=== PATIENT | female | born 2000 | race African-American/Black ===

== ENCOUNTER 2018-07-22 11:23 | Inpatient (IN) ==
[2018-07-22 11:59] LABS: Apearance,Urine CLEAR (Clear); Bilirubin,Urine Negative (Negative); Blood, Urine Small mg/dL (Negative); Glucose,Urine (UA) Negative (Negative); Ketones,Urine Negative (Negative); Mucus,Urine Occasional /LPF (Occasional); Nitrite,Urine Negative (Negative); Protein,Urine Negative; RBC,Urine 1 /HPF (0-4); Squamous Epithelial Cell,Urine Occasional /HPF (0-10); Urine Color Colorless (Yellow); Urine Specific Gravity 1.003 (1.001-1.035); Urine Urobilinogen < 2.0 EU/DL (0.2-1.0); WBC,Urine 1 /HPF (0-6)
[2018-07-22] MEDS ORDERED: BUTORPHANOL 2 MG/ML VIAL IM ONE (13:51)
[2018-07-22] MEDS ORDERED: PROMETHAZINE 25 MG/1 ML VIAL IM ONE (13:51)
[2018-07-22] MEDS ORDERED: PROMETHAZINE INJ 25 MG in SODIUM CHLORIDE 0.9% 50 ML IV ONE (13:51)
[2018-07-22] MEDS ORDERED: BUTORPHANOL 2 MG/ML VIAL ONE (13:53)
[2018-07-22] MEDS ORDERED: PROMETHAZINE 25 MG/1 ML VIAL ONE (13:54)
[2018-07-22] MEDS ORDERED: BUTORPHANOL 2 MG/ML VIAL IV PRN (17:31)
[2018-07-22] MEDS ORDERED: LACTATED RINGERS 1,000 ML IV SCH (18:00)
[2018-07-22] MEDS ORDERED: ONDANSETRON 4 MG/2 ML VIAL IV PRN ×2 (18:03→20:41)
[2018-07-22] MEDS ORDERED: AMPICILLIN INJ 2,000 MG in SODIUM CHLORIDE 0.9% 100 ML IV ONE (18:05)
[2018-07-22] MEDS ORDERED: CITRIC ACID/SODIUM CITRATE 30 ML UDCUP PO ONE (18:08)
[2018-07-22] MEDS ORDERED: NALOXONE 0.4 MG/ML VIAL IV PRN (18:08)
[2018-07-22] MEDS ORDERED: diphenhydrAMINE 50 MG/1 ML VIAL IV PRN ×2 (18:08)
[2018-07-22] MEDS ORDERED: LACTATED RINGERS 1,000 ML IV ONE (18:08)
[2018-07-22] MEDS ORDERED: FAMOTIDINE 20 MG/2 ML VIAL IV ONE (18:08)
[2018-07-22] MEDS ORDERED: ePHEDrine 50 MG/ML AMP IV PRN (18:08)
[2018-07-22 18:30] LABS: Basophils % 0.4 % (0.0-0.8); Eosinophils % 0.2 % (0.00-10.9); Hematocrit 33.2 VOL% (35.7-47.0); Hemoglobin 9.8 GM/DL (12.0-16.0); Immature Granulocytes % 1.2 %; Immature Granulocytes Absolute 0.11 #; Lymphocytes # 1.6 10*3/uL (1.4-4.0); Lymphocytes % 17.3 % (21.3-54.2); Mean Corpuscular HGB Conc 29.5 GM/DL (32-36); Mean Corpuscular Hemoglobin 24 PG (27-34); Mean Corpuscular Volume 80.8 FL (87-102); Mean Platelet Volume 11.2 FL (9.6-12.0); Monocytes # 0.7 10*3/uL (0.11-0.8); Monocytes % 7.5 % (1.7-12.7); Neutrophils # 6.9 10*3/uL (1.4-7.4); Neutrophils % 73.4 % (38.7-73.9); Platelet Count 161 T/CUMM (130-400); Red Blood Count 4.11 MC/CUMM (3.8-5.5); Red Cell Distribution Width 15.1 % (9.3-17.3); White Blood Count 9.4 T/CUMM (4-12)
[2018-07-22] MEDS ORDERED: OXYTOCIN/LR 20 UNIT/1,000 ML BAG IV SCH (18:30)
[2018-07-22] MEDS ORDERED: fentaNYL 2 MCG/ROPIV 0.2% EPID 100 ML EPIDURAL SCH (18:30)
[2018-07-22] MEDS ORDERED: OXYTOCIN/LR 20 UNIT/1,000 ML BAG IV ONE ×2 (19:31→20:41)
[2018-07-22] MEDS ORDERED: miSOPROStol 200 MCG TABLET ONE (19:31)
[2018-07-22] MEDS ORDERED: TRANEXAMIC ACID 1,000 MG/10 ML VIAL ONE (19:31)
[2018-07-22] MEDS ORDERED: CARBOPROST TROMETHAMINE 250 MCG/ML AMP IM ONE (19:32)
[2018-07-22] MEDS ORDERED: METHYLERGONOVINE 0.2 MG/1 ML AMP ONE (19:32)
[2018-07-22] MEDS ORDERED: LANOLIN 50% CREAM 0.3 OZ TUBE TOP PRN (20:41)
[2018-07-22] MEDS ORDERED: BISACODYL 10 MG SUPP RECTAL PRN (20:41)
[2018-07-22] MEDS ORDERED: DIPH/TET/ACEL PERT BOOSTER VACCINE 0.5 ML VIAL IM ONE (20:41)
[2018-07-22] MEDS ORDERED: IBUPROFEN 800 MG TABLET PO PRN (20:41)
[2018-07-22] MEDS ORDERED: WITCH HAZEL PADS 100/JAR TOP PRN (20:41)
[2018-07-22] MEDS ORDERED: BENZOCAINE 20%/MENTHOL 0.5% SPRAY 56 GM CAN TOP PRN (20:41)
[2018-07-22] MEDS ORDERED: ACETAMINOPHEN 325 MG TABLET PO PRN (20:41)
[2018-07-22] MEDS ORDERED: RHO(D) IMMUNE GLOBULIN 300 MCG SYRINGE IM ONE (20:41)
[2018-07-22] MEDS ORDERED: oxyCODONE/ACETAMINOPHEN 5-325 MG TABLET PO PRN ×2 (20:41)
[2018-07-22] MEDS ORDERED: MEASLES/MUMPS/RUBELLA VACCINE 0.5 ML VIAL SUBCUT ONE (20:41)
[2018-07-22] MEDS ORDERED: HYDROCORTISONE 2.5% RECTAL CREAM 30 GM TUBE TOP PRN (20:41)
[2018-07-22] MEDS ORDERED: AMPICILLIN INJ 1,000 MG in SODIUM CHLORIDE 0.9% 100 ML IV SCH (22:30)
[2018-07-22] MEDS: DOCUSATE SODIUM 100 MG CAPSULE PO SCH (23:52)
[2018-07-23 06:07] LABS: Basophils # 0.1 10*3/uL (0.0-0.2); Basophils % 0.4 % (0.0-0.8); Eosinophils % 0.2 % (0.00-10.9); Hematocrit 29.4 VOL% (35.7-47.0); Hemoglobin 9.1 GM/DL (12.0-16.0); Immature Granulocytes % 0.7 %; Immature Granulocytes Absolute 0.09 #; Lymphocytes # 2.5 10*3/uL (1.4-4.0); Lymphocytes % 20.8 % (21.3-54.2); Mean Corpuscular Hemoglobin 24 PG (27-34); Mean Corpuscular Volume 77.8 FL (87-102); Mean Platelet Volume 10.5 FL (9.6-12.0); Monocytes # 1.2 10*3/uL (0.11-0.8); Monocytes % 9.7 % (1.7-12.7); Neutrophils # 8.2 10*3/uL (1.4-7.4); Neutrophils % 68.2 % (38.7-73.9); Platelet Count 160 T/CUMM (130-400); Red Blood Count 3.78 MC/CUMM (3.8-5.5)
[2018-07-23] MEDS: DOCUSATE SODIUM 100 MG CAPSULE PO SCH ×2 (09:00→21:01)
[2018-07-24 08:14] VITALS: BP 120/75
[2018-07-24] MEDS: DOCUSATE SODIUM 100 MG CAPSULE PO SCH (09:49)
== END 2018-07-24 12:30 | disposition home or self-care (01) | DRG 807 ==
LOC: N.LDOUT 11:23 → N.LD 11:30 → N.OB 23:47
PROVIDERS: ADMIT Obstetrics & Gynecology; ATTEND Obstetrics & Gynecology

== ENCOUNTER 2021-02-08 04:18 | Inpatient (IN) ==
[2021-02-08] MEDS ORDERED: ONDANSETRON 4 MG/2 ML VIAL IV PRN ×2 (04:38→12:50)
[2021-02-08] MEDS ORDERED: MEPERIDINE 50 MG/1 ML VIAL IV PRN (04:38)
[2021-02-08] MEDS ORDERED: BUTORPHANOL 2 MG/ML VIAL IV PRN (04:38)
[2021-02-08] MEDS ORDERED: LACTATED RINGERS 500 ML IV PRN (04:38)
[2021-02-08] MEDS ORDERED: MEPERIDINE 50 MG/1 ML VIAL ONE (04:40)
[2021-02-08] MEDS ORDERED: MEPERIDINE 50 MG/1 ML VIAL IV ONE (04:43)
[2021-02-08] MEDS ORDERED: AMPICILLIN INJ 2,000 MG in SODIUM CHLORIDE 0.9% 100 ML IV ONE (04:44)
[2021-02-08] MEDS ORDERED: AMPICILLIN 2,000 MG VIAL ONE (04:45)
[2021-02-08] MEDS ORDERED: SODIUM CHLORIDE 0.9% 0 ML IV ONE (04:46)
[2021-02-08] MEDS ORDERED: LACTATED RINGERS 1,000 ML IV SCH (05:00)
[2021-02-08 05:14] LABS: Basophils % 0.5 % (0.0-0.8); Eosinophils # 0.1 10*3/uL (0.0-0.87); Eosinophils % 0.6 % (0.00-10.9); Hematocrit 31.8 VOL% (35.7-47.0); Hemoglobin 9.4 GM/DL (12.0-16.0); Immature Granulocytes % 0.9 %; Immature Granulocytes Absolute 0.08 #; Lymphocytes # 2.5 10*3/uL (1.4-4.0); Lymphocytes % 28.2 % (21.3-54.2); Mean Corpuscular HGB Conc 29.6 GM/DL (32-36); Mean Corpuscular Volume 73.8 FL (87-102); Mean Platelet Volume 9.9 FL (9.6-12.0); Monocytes % 8.9 % (1.7-12.7); Neutrophils % 60.9 % (38.7-73.9); Platelet Count 233 T/CUMM (130-400); Red Blood Count 4.31 MC/CUMM (3.8-5.5); Red Cell Distribution Width 15.6 % (9.3-17.3); White Blood Count 8.7 T/CUMM (4-12)
[2021-02-08 05:28] LABS: Alanine Aminotransferase 10 U/L (13-56); Albumin 1.2 G/DL (3.4-5.0); Alkaline Phosphatase 176 U/L (45-117); Aspartate Amino Transferase 15 U/L (0-37); Bilirubin,Total < 0.39 MG/DL (0.20-1.00); Blood Urea Nitrogen 3 MG/DL (7-18); Calcium 8.5 MG/DL (8.5-10.1); Carbon Dioxide 22 MMOL/L (21-32); Estimated Glom Filtration Rate 151 ML/MIN; Glucose 98 MG/DL (74-106); Osmolality,Calculated 269.8 MOS/KG (273-304); Potassium 2.7 MMOL/L (3.5-5.1); Sodium 137 MMOL/L (136-145); Total Protein 7.1 G/DL (6.4-8.2)
[2021-02-08 05:45] LABS: Hepatitis B Surface Ag Quant < 0.10 Index; Hepatitis B Surface Ag Result Non-Reactive (NonReactive)
[2021-02-08] MEDS ORDERED: METHYLERGONOVINE 0.2 MG/1 ML AMP ONE (05:51)
[2021-02-08] MEDS ORDERED: miSOPROStoL 200 MCG TABLET ONE (05:51)
[2021-02-08] MEDS ORDERED: TRANEXAMIC ACID 1,000 MG/10 ML VIAL ONE (05:51)
[2021-02-08] MEDS ORDERED: OXYTOCIN/LR 20 UNIT/1,000 ML BAG IV ONE ×3 (05:51→12:50)
[2021-02-08] MEDS ORDERED: CARBOPROST TROMETHAMINE 250 MCG/ML AMP IM ONE (05:52)
[2021-02-08 05:57] LABS: HIV Antigen/Antibody Result Nonreactive (Nonreactive); Rubella Antibody IgG Result Reactive (NonReactive)
[2021-02-08 06:17] LABS: Cord Arterial Blood HCO3 24.6 MMOL/L
[2021-02-08 06:19] LABS: Cord Venous Blood HCO3 21.8 MMOL/L; Cord Venous Blood PCO2 38.5 MMHG; Cord Venous Blood PO2 33.9 MMHG
[2021-02-08 09:32] LABS: Basophils % 0.2 % (0.0-0.8); Eosinophils % 0.1 % (0.00-10.9); Immature Granulocytes % 0.6 %; Immature Granulocytes Absolute 0.08 #; Lymphocytes # 1.4 10*3/uL (1.4-4.0); Lymphocytes % 11.1 % (21.3-54.2); Mean Corpuscular Volume 71.6 FL (87-102); Mean Platelet Volume 9.7 FL (9.6-12.0); Monocytes % 5.3 % (1.7-12.7); Neutrophils % 82.7 % (38.7-73.9); Platelet Count 223 T/CUMM (130-400); Red Blood Count 4.19 MC/CUMM (3.8-5.5); Red Cell Distribution Width 15.9 % (9.3-17.3); White Blood Count 12.4 T/CUMM (4-12)
[2021-02-08 09:48] LABS: Alanine Aminotransferase 10 U/L (13-56); Albumin 2.4 G/DL (3.4-5.0); Alkaline Phosphatase 159 U/L (45-117); Aspartate Amino Transferase 20 U/L (0-37); Bilirubin,Total < 0.39 MG/DL (0.20-1.00); Blood Urea Nitrogen 2 MG/DL (7-18); Calcium 8.7 MG/DL (8.5-10.1); Carbon Dioxide 26 MMOL/L (21-32); Estimated Glom Filtration Rate 151 ML/MIN; Glucose 115 MG/DL (74-106); Potassium 3.4 MMOL/L (3.5-5.1); Sodium 136 MMOL/L (136-145); Total Protein 6.8 G/DL (6.4-8.2)
[2021-02-08] MEDS: POTASSIUM CHLORIDE RIDER 10 MEQ/100 ML PREMIX IV PRN ×4 (10:29→14:25)
[2021-02-08] MEDS ORDERED: SODIUM CHLORIDE 0.9% 1,000 ML IV SCH (10:30)
[2021-02-08] MEDS ORDERED: LANOLIN 50% CREAM 0.3 OZ TUBE TOP PRN (12:50)
[2021-02-08] MEDS ORDERED: ACETAMINOPHEN 325 MG TABLET PO PRN (12:50)
[2021-02-08] MEDS ORDERED: RHO(D) IMMUNE GLOBULIN 300 MCG SYRINGE IM ONE (12:50)
[2021-02-08] MEDS ORDERED: DIPH/TET/ACEL PERT BOOSTER VACCINE 0.5 ML VIAL IM ONE (12:50)
[2021-02-08] MEDS ORDERED: oxyCODONE/ACETAMINOPHEN 5-325 MG TABLET PO PRN (12:50)
[2021-02-08] MEDS ORDERED: BISACODYL 10 MG SUPP RECTAL PRN (12:50)
[2021-02-08] MEDS ORDERED: MEASLES/MUMPS/RUBELLA VACCINE 0.5 ML VIAL SUBCUT ONE (12:50)
[2021-02-08] MEDS ORDERED: HYDROCORTISONE 2.5% RECTAL CREAM 30 GM TUBE TOP PRN (12:50)
[2021-02-08] MEDS ORDERED: WITCH HAZEL PADS 100/JAR TOP PRN (12:50)
[2021-02-08] MEDS ORDERED: BENZOCAINE 20%/MENTHOL 0.5% SPRAY 56 GM CAN TOP PRN (12:50)
[2021-02-08] MEDS: DOCUSATE SODIUM 100 MG CAPSULE PO SCH ×2 (13:05→20:57)
[2021-02-08] MEDS: IBUPROFEN 800 MG TABLET PO PRN (18:48)
[2021-02-09] MEDS: oxyCODONE/ACETAMINOPHEN 5-325 MG TABLET PO PRN ×2 (05:49→13:02)
[2021-02-09 06:53] LABS: Basophils # 0.1 10*3/uL (0.0-0.2); Basophils % 0.5 % (0.0-0.8); Eosinophils # 0.2 10*3/uL (0.0-0.87); Eosinophils % 1.4 % (0.00-10.9); Hematocrit 32.3 VOL% (35.7-47.0); Hemoglobin 9.7 GM/DL (12.0-16.0); Immature Granulocytes % 0.7 %; Immature Granulocytes Absolute 0.08 #; Lymphocytes # 3.3 10*3/uL (1.4-4.0); Lymphocytes % 30.6 % (21.3-54.2); Mean Corpuscular Volume 73.4 FL (87-102); Mean Platelet Volume 10.8 FL (9.6-12.0); Monocytes % 8.9 % (1.7-12.7); Neutrophils % 57.9 % (38.7-73.9); Platelet Count 232 T/CUMM (130-400); Red Cell Distribution Width 15.6 % (9.3-17.3); White Blood Count 10.9 T/CUMM (4-12)
[2021-02-09] MEDS: MULTIVITAMIN (PRENATAL) TABLET PO SCH (09:06)
[2021-02-09] MEDS: DOCUSATE SODIUM 100 MG CAPSULE PO SCH ×2 (09:06→20:43)
[2021-02-09] MEDS: IBUPROFEN 800 MG TABLET PO PRN (15:12)
[2021-02-10 07:33] VITALS: BP 124/85
[2021-02-10] MEDS: MULTIVITAMIN (PRENATAL) TABLET PO SCH (08:17)
[2021-02-10] MEDS: IBUPROFEN 800 MG TABLET PO PRN (08:17)
[2021-02-10] MEDS: DOCUSATE SODIUM 100 MG CAPSULE PO SCH (08:17)
== END 2021-02-10 10:55 | disposition home or self-care (01) | DRG 560 ==
LOC: N.LD 04:18 → N.OB 12:37
PROVIDERS: ADMIT Student in an Organized Health Care Education/Training Program; ATTEND Student in an Organized Health Care Education/Training Program

== ENCOUNTER 2022-03-04 12:33 | Inpatient (IN) ==
[2022-03-04] MEDS ORDERED: CARBOPROST TROMETHAMINE 250 MCG/ML AMP IM PRN (12:37)
[2022-03-04] MEDS ORDERED: TRANEXAMIC ACID 1,000 MG in SODIUM CHLORIDE 0.9% 100 ML IV PRN (12:37)
[2022-03-04] MEDS ORDERED: OXYTOCIN/LR 20 UNIT/1,000 ML BAG IV ONE (12:37)
[2022-03-04] MEDS ORDERED: miSOPROStoL 200 MCG TABLET RECTAL PRN (12:37)
[2022-03-04] MEDS ORDERED: METHYLERGONOVINE 0.2 MG/1 ML AMP IM PRN (12:37)
[2022-03-04] MEDS ORDERED: ONDANSETRON 4 MG/2 ML VIAL IV PRN (12:37)
[2022-03-04] MEDS ORDERED: LACTATED RINGERS 500 ML IV PRN (12:37)
[2022-03-04] MEDS ORDERED: OXYTOCIN/LR 20 UNIT/1,000 ML BAG IV SCH (13:00)
[2022-03-04] MEDS ORDERED: LACTATED RINGERS 1,000 ML IV SCH (13:00)
[2022-03-04 13:14] LABS: Basophils # 0.1 10*3/uL (0.0-0.2); Basophils % 0.6 % (0.0-0.8); Eosinophils % 0.4 % (0.00-10.9); Hemoglobin 10.1 GM/DL (12.0-16.0); Immature Granulocytes % 0.7 %; Immature Granulocytes Absolute 0.06 #; Lymphocytes # 1.9 10*3/uL (1.4-4.0); Lymphocytes % 23.4 % (21.3-54.2); Mean Corpuscular HGB Conc 29.7 GM/DL (32-36); Mean Corpuscular Volume 73.8 FL (87-102); Mean Platelet Volume 10.2 FL (9.6-12.0); Monocytes # 0.6 10*3/uL (0.11-0.8); Neutrophils % 67.9 % (38.7-73.9); Platelet Count 242 T/CUMM (130-400); Red Blood Count 4.61 MC/CUMM (3.8-5.5); Red Cell Distribution Width 16.6 % (9.3-17.3); White Blood Count 8.3 T/CUMM (4-12)
[2022-03-04 13:14] LABS: Cord Arterial Blood HCO3 22.6 MMOL/L
[2022-03-04 13:17] LABS: Cord Venous Blood HCO3 24.1 MMOL/L; Cord Venous Blood PCO2 38.1 MMHG; Cord Venous Blood PO2 24.9
[2022-03-04 13:19] LABS: Bilirubin,Urine Negative (Negative); Blood, Urine Small mg/dL (Negative); Glucose,Urine (UA) Negative (Negative); Ketones,Urine 20 mg/dL (Negative); Mucus,Urine Occasional /LPF (Occasional); Nitrite,Urine Negative (Negative); Protein,Urine Negative (Negative); RBC,Urine 4 /HPF (0-4); Squamous Epithelial Cell,Urine Occasional /HPF (0-10); Urine Appearance CLEAR (Clear); Urine Color Yellow (Yellow)
[2022-03-04 13:23] LABS: Barbiturates Screen,Urine Negative (Negative); Benzodiazepines Screen,Urine Negative (Negative); Cannabinoid Screen,Urine Negative (Negative); Opiate Screen,Urine Negative (Negative); Phencyclidine Screen,Urine Negative (Negative)
[2022-03-04 13:39] LABS: Alanine Aminotransferase 13 U/L (13-56); Albumin 2.8 G/DL (3.4-5.0); Alkaline Phosphatase 202 U/L (45-117); Aspartate Amino Transferase 20 U/L (0-37); Bilirubin,Total < 0.39 MG/DL (0.20-1.00); Blood Urea Nitrogen 2 MG/DL (7-18); Calcium 8.5 MG/DL (8.5-10.1); Carbon Dioxide 22 MMOL/L (21-32); Chloride 105 MMOL/L (98-107); Glucose 101 MG/DL (74-106); Osmolality,Calculated 272.5 MOS/KG (273-304); Potassium 2.9 MMOL/L (3.5-5.1); Sodium 139 MMOL/L (136-145); Total Protein 7.5 G/DL (6.4-8.2)
[2022-03-04] MEDS ORDERED: NIFEdipine 10 MG CAPSULE PO ONE (14:04)
[2022-03-04] MEDS: IBUPROFEN 800 MG TABLET PO PRN (18:59)
[2022-03-04] MEDS: DOCUSATE SODIUM 100 MG CAPSULE PO SCH (20:48)
[2022-03-05 05:46] LABS: Basophils # 0.1 10*3/uL (0.0-0.2); Basophils % 0.5 % (0.0-0.8); Eosinophils # 0.1 10*3/uL (0.0-0.87); Hemoglobin 9.5 GM/DL (12.0-16.0); Immature Granulocytes % 0.8 %; Immature Granulocytes Absolute 0.09 #; Lymphocytes # 3.4 10*3/uL (1.4-4.0); Lymphocytes % 30.9 % (21.3-54.2); Mean Corpuscular HGB Conc 30.6 GM/DL (32-36); Mean Corpuscular Volume 72.9 FL (87-102); Mean Platelet Volume 10.9 FL (9.6-12.0); Monocytes # 0.8 10*3/uL (0.11-0.8); Monocytes % 6.8 % (1.7-12.7); Platelet Count 231 T/CUMM (130-400); Red Blood Count 4.25 MC/CUMM (3.8-5.5); Red Cell Distribution Width 16.5 % (9.3-17.3)
[2022-03-05] MEDS: DOCUSATE SODIUM 100 MG CAPSULE PO SCH ×2 (09:54→21:20)
[2022-03-05] MEDS: MULTIVITAMIN (PRENATAL) TABLET PO SCH (09:55)
[2022-03-05] MEDS: IBUPROFEN 800 MG TABLET PO PRN (16:20)
[2022-03-06] MEDS: DOCUSATE SODIUM 100 MG CAPSULE PO SCH (10:05)
[2022-03-06] MEDS: MULTIVITAMIN (PRENATAL) TABLET PO SCH (10:05)
[2022-03-06 12:06] VITALS: BP 133/80
[2022-03-06] MEDS ORDERED: INFLUENZA VIRUS VACCINE 0.5 ML SYRINGE IM ONE (13:10)
== END 2022-03-06 14:45 | disposition home or self-care (01) | DRG 560 ==
LOC: N.LDOUT 12:33 → N.LD 12:34 → N.OB 17:11
PROVIDERS: ADMIT Obstetrics & Gynecology; ATTEND Obstetrics & Gynecology